=== PATIENT | female | born 1990 | race Caucasian/White ===

== ENCOUNTER 2020-11-18 18:12 | Emergency (ER) | payer MEDICAID, OTHER ==
[~2020-11-18] VITALS: Ht 157.5 cm; Wt 73.7 kg
[2020-11-18 18:18] VITALS: BP 151/104
--- NOTE | 2020-11-18 18:55 | ED Back Pain ---
General Chief Complaint: Back Problems Stated Complaint: LWR BACK INJ Source of Information: Patient Exam Limitations: No Limitations History of Present Illness Date Seen by Provider: Nov 18, 2020 Time Seen by Provider: 18:00 Initial Comments Patient is a 30-year-old female presents with acute right lower lumbar back radiating to her right leg above her knee. Patient states symptoms began 3 days ago after lifting a heavy load of laundry. She reports immediate sharp pain to this region worse with position change palpation and extension of back. She denies lower extremity weakness or loss of sensation. Patient is taking ibuprofen and cyclobenzaprine with limited relief. She is continue to work the past 2 days at local [id number]. She states her pain is not improved and continues. It is rated moderate to severe and described as sharp and continuous. It is nonprogressive and nonmigratory. No loss of bowel or bladder function, no saddle anesthesia. No other acute symptoms or complaints. History of chronic intermittent back pain. Severity: Moderate Radiation: Other Method of Injury: Other Modifying Factors: Improves With Movement, Improves With Pain Medication Associated Symptoms: other Allergies and Home Medications Allergies Coded Allergies: No Known Drug Allergies (Unverified , 11/18/20) Patient Home Medication List Home Medication List Reviewed: Yes Review of Systems Constitutional: see HPI EENTM: see HPI Respiratory: see HPI Cardiovascular: see HPI Gastrointestinal: see HPI Genitourinary: see HPI Musculoskeletal: see HPI Skin: see HPI Psychiatric/Neurological: See HPI All Other Systems Reviewed Negative Unless Noted: Yes Past [id number]-[id number] Hx Past Med/Social Hx: Reviewed Nursing Past Med/Soc Hx Physical Exam Vital Signs Capillary Refill : Height, Weight, BMI Height: '" Weight: lbs. oz. kg; BMI Method: General Appearance: No Apparent Distress, Anxious Neck: Full Range of Motion, Non Tender Cardiovascular: Regular Rate, Rhythm, No Edema Respiratory: Lungs Clear, Normal Breath Sounds Gastrointestinal: Non Tender, Soft Back: Normal Inspection, No CVA Tenderness, No Vertebral Tenderness, Other (Right paravertebral muscle pain/tenderness) Neurologic/Psychiatric: Alert, Oriented x3, No Motor/Sensory Deficits, Normal Mood/Affect, Other (Patellar reflexes 2+ symmetric ) Skin: Normal Color, Warm/Dry Lymphatic: No Adenopathy Departure Communication (Admissions) Patient is a 30-year-old female who presents with right low back pain with soft tissue paravertebral muscle tenderness. No neurologic deficits. Pain improved with treatment. Recommendations are supportive care watchful waiting and PCP follow-up. Courtesy work note provided. Return precautions reviewed. Patient verbalizes understanding agreement discharge instructions prior to departure. Impression Primary Impression: Right lumbar radiculopathy Disposition: 01 HOME, SELF-CARE Condition: Stable Departure-Patient Inst. Decision time for Depature: 18:55 Referrals: NO,LOCAL PHYSICIAN (PCP/Family) Primary Care Physician Patient Instructions: Radiculopathy (DC) Add. Discharge Instructions: Please avoid heavy lifting and strenuous physical activity. Take ibuprofen for pain and hydrocodone, and cyclobenzaprine as needed for additional relief. Follow-up with your PCP in 2 to 3 days for reevaluation. Return to the ED if new or worsening symptoms. All discharge instructions reviewed with patient and/or family. Voiced understanding. Scripts Cyclobenzaprine HCl (Cyclobenzaprine HCl) 10 Mg Tablet 10 MG PO Q8H PRN for SPASMS, #30 TAB 0 Refills Prov: JARRET HUERTA DO 11/18/20 Hydrocodone/Acetaminophen (Hydrocodone-Acetamin 5-325 mg) 1 Each Tablet 1 TAB PO Q4H PRN for PAIN-MODERATE (5-7), #14 TAB Prov: JARRET HUERTA DO 11/18/20 JARRET HUERTA DO Nov 18, 2020 18:55
[2020-11-18] MEDS ORDERED: CYCL10TA9 PO (18:56)
[2020-11-18] MEDS ORDERED: ACHD5005 PO (18:56)
== END 2020-11-18 19:10 | disposition home or self-care (01) ==
LOC: ER FS 18:14
DX: M54.16 Radiculopathy, lumbar region (principal)
CPT/HCPCS: 99281